=== PATIENT | male | born 1985 | race Caucasian/White ===

== ENCOUNTER 2018-04-07 11:08 | Emergency (ER) | payer OTHER ==
[~2018-04-07] VITALS: Ht 177.8 cm; Wt 97.5 kg
[2018-04-07] MEDS ORDERED: AMOXICILLIN 50500 MG PO (12:00)
[2018-04-07] MEDS ORDERED: NABUMETONE 750750 M1 PO (12:00)
[2018-04-07] MEDS ORDERED: ACETAMINOPHEN-1 EAC1 PO (12:00)
[2018-04-07 12:20] VITALS: BP 139/98
== END 2018-04-07 12:20 | disposition home or self-care (01) ==
LOC: M.ERS 11:08
DX: J02.0 Streptococcal pharyngitis (principal); F17.210 Nicotine dependence, cigarettes, uncomplicated; Z88.1 Allergy status to other antibiotic agents

== ENCOUNTER 2020-06-14 12:49 | Emergency (ER) | payer OTHER ==
[~2020-06-14] VITALS: Ht 177.8 cm; Wt 104.3 kg
[~2020-06-14 12:49] MED LIST: ACETAMINOPHEN-1 EAC1 PO; AMOXICILLIN 50500 MG PO; NABUMETONE 750750 M1 PO
[2020-06-14 12:50] VITALS: BP 148/103
[2020-06-14] MEDS ORDERED: MEDROLDOSEPACK PO (13:51)
[2020-06-14] MEDS ORDERED: PROAIR HFA8.5 GM INH (13:51)
== END 2020-06-14 14:09 | disposition home or self-care (01) ==
LOC: M.ERS 12:49
DX: J06.9 Acute upper respiratory infection, unspecified (principal); F17.210 Nicotine dependence, cigarettes, uncomplicated; Z20.822 Contact with and (suspected) exposure to COVID-19; Z98.890 Other specified postprocedural states; Z88.1 Allergy status to other antibiotic agents

== ENCOUNTER 2020-07-19 22:01 | Emergency (ER) | payer OTHER ==
[~2020-07-19] VITALS: Ht 175.3 cm; Wt 104.3 kg
[~2020-07-19 22:01] MED LIST changes: +MEDROLDOSEPACK PO; +PROAIR HFA8.5 GM INH
[2020-07-19 22:40] LABS: ABSOLUTE BASOPHILS 0.1 thou/uL (0.0-0.2); ABSOLUTE EOSINOPHILS 0.1 thou/uL (0.0-0.7); ABSOLUTE LYMPHOCYTES 2.1 thou/uL (0.8-5.3); ABSOLUTE MONOCYTES 0.5 thou/uL (0.0-1.2); ABSOLUTE NEUTROPHILS 3.7 thou/uL (1.6-8.1); BASOPHILS 0.9 %; EOSINOPHILS 2.2 %; HEMATOCRIT 46.9 % (42.0-52.0); HEMOGLOBIN 15.8 gm/dL (14.0-18.0); MCH 29.6 pg (26.0-34.0); MCHC 33.7 g/dL (28.0-37.0); MCV 87.8 fL (80.0-100.0); MONOCYTES 7.2 %; MPV 7.3 fl. (7.2-11.1); NUCLEATED RBCS 0 /100WBC; PLATELET COUNT* 242 thou/uL (150-400); POLYS 56.7 %; RBC 5.34 mil/uL (4.50-6.00); RDW-CV 13.5 % (10.5-14.5); WBC 6.5 thou/uL (4.0-11.0)
[2020-07-19 22:46] LABS: CALCIUM 8.9 mg/dL (8.5-10.1); POTASSIUM 3.7 mmol/L (3.5-5.1)
[2020-07-19 22:51] LABS: ALBUMIN 3.6 g/dL (3.4-5.0); TOTAL BILIRUBIN 0.2 mg/dL (<0.1-1.0); TOTAL PROTEIN 7.3 g/dL (6.4-8.2)
[2020-07-20] MEDS ORDERED: CARAFATE 1 GM TA1 GM PO (00:20)
[2020-07-20 00:29] VITALS: BP 144/79
== END 2020-07-20 00:29 | disposition home or self-care (01) ==
LOC: M.ERS 22:01
PROVIDERS: Emergency Medicine
DX: K92.1 Melena (principal); Z88.1 Allergy status to other antibiotic agents